=== PATIENT | male | born 1980 | race Caucasian/White ===

== ENCOUNTER 2017-12-13 20:45 | Emergency (ER) | payer MEDICAID ==
[~2017-12-13] VITALS: Ht 190.5 cm; Wt 99.8 kg
[~2017-12-13 20:45] MED LIST: NO HOME MEDS
[2017-12-13 23:22] LABS: URINE AMPHETAMINE SCREEN NEGATIVE (Neg); URINE BARBITUATE SCREEN NEGATIVE (Neg); URINE BENZODIAZEPINES SCREEN NEGATIVE (Neg); URINE CANNABINOID SCREEN NEGATIVE (Neg); URINE COCAINE SCREEN NEGATIVE (Neg); URINE METHADONE SCREEN NEGATIVE (Neg); URINE OPIATE SCREEN NEGATIVE (Neg); URINE PHENCYCLIDINE SCREEN NEGATIVE (Neg)
[2017-12-14] MEDS ORDERED: sulfamethoxazole/trimethoprim DS (800/160mg) tablet PO ONE (00:15)
[2017-12-14] MEDS ORDERED: HYDROcodone/acetaminophen 10/325mg tab PO ONE ×2 (00:20→03:55)
[2017-12-14] MEDS ORDERED: LIDOcaine 1.5% w/epinephrine 1:200,000 5ml ampul IJ ONE (03:05)
[2017-12-14 03:35] VITALS: BP 128/82
[2017-12-14] MEDS ORDERED: HYDR-569 PO (03:54)
[2017-12-14] MEDS ORDERED: AZIT-63 PO (03:54)
[2017-12-14] MEDS ORDERED: azithromycin 250mg tablet PO ONE (03:55)
[2017-12-14] MEDS ORDERED: SULF1TAB48 PO (04:13)
[2017-12-14] MEDS ORDERED: traMADol 50MG tablet PO ONE (04:20)
== END 2017-12-14 04:31 | disposition home or self-care (01) ==
LOC: ER 20:45
DX: S06.0X0A Concussion without loss of consciousness, initial encounter (principal); S02.40FA Zygomatic fracture, left side, initial encounter for closed fracture; S02.32XA Fracture of orbital floor, left side, initial encounter for closed fracture; K13.0 Diseases of lips; F17.200 Nicotine dependence, unspecified, uncomplicated; F15.90 Other stimulant use, unspecified, uncomplicated; F11.90 Opioid use, unspecified, uncomplicated; Z56.0 Unemployment, unspecified; Z88.5 Allergy status to narcotic agent; Z79.899 Other long term (current) drug therapy; Y04.8XXA Assault by other bodily force, initial encounter; Y93.89 Activity, other specified; Y92.89 Other specified places as the place of occurrence of the external cause; Y99.8 Other external cause status
CPT/HCPCS: 10060; 70450; 70486; 80305; 99285; J3490

== ENCOUNTER 2018-02-15 12:02 | Emergency (ER) | payer MEDICAID ==
[~2018-02-15] VITALS: Ht 190.5 cm; Wt 91.0 kg
[~2018-02-15 12:02] MED LIST changes: +HYDR-569 PO
[2018-02-15 12:03] VITALS: BP 147/83
== END 2018-02-15 12:35 | disposition home or self-care (01) ==
LOC: ER 12:02
DX: Z02.89 Encounter for other administrative examinations (principal); F15.90 Other stimulant use, unspecified, uncomplicated; F11.90 Opioid use, unspecified, uncomplicated; Z86.19 Personal history of other infectious and parasitic diseases; Z56.0 Unemployment, unspecified; Z88.5 Allergy status to narcotic agent; Z79.899 Other long term (current) drug therapy
CPT/HCPCS: 99283